=== PATIENT | female | born 1990 | race Caucasian/White ===

== ENCOUNTER 2024-12-15 06:09 | Inpatient (IN) | payer OTHER ==
[2024-12-15] MEDS ORDERED: Tranexamic Acid 1,000 MG/10 ML VIAL ONE (06:27)
[2024-12-15] MEDS ORDERED: Methylergonovine 0.2 MG/ML VIAL ONE (06:28)
[2024-12-15] MEDS ORDERED: Carboprost 250 MCG/ML AMP ONE (06:28)
[2024-12-15] MEDS: Oxytocin 30 units/NS 500 ML 500 ML ONE (06:40)
[2024-12-15] MEDS ORDERED: Lidocaine 1% (PF) 30 ML VIAL ONE (06:43)
[2024-12-15 06:44] VITALS: BMI 30.7
[2024-12-15] MEDS ORDERED: Boostrix 0.5 ML (Tdap) VIAL (>/=7 yrs of age) IM ONE (07:13)
[2024-12-15] MEDS ORDERED: Methylergonovine 0.2 MG/ML VIAL IM PRN (07:13)
[2024-12-15] MEDS ORDERED: hydrALAZINE 20 MG/ML VIAL SLOW IVP PRN (07:13)
[2024-12-15] MEDS ORDERED: Ibuprofen 200 MG TAB PO SCH (08:00)
[2024-12-15 08:25] LABS: Hematocrit 38.6 % (34.9-44.5); Hemoglobin 13.0 g/dL (12.0-15.5); Mean Corpuscular Hemoglobin 31.5 pg (27.0-33.0); Mean Corpuscular Volume 93.5 fL (81.6-98.3); Platelet Count 273 10x3/uL (150-450); Red Blood Cell (RBC) Count 4.13 10x6/uL (3.90-5.03); White Blood Cell (WBC) Count 33.93 10x3/uL (3.5-10.5)
[2024-12-15 09:03] LABS: Syphilis Antibody Index 0.07 S/CO (<1.00 Non-Reactive)
[2024-12-15 09:04] LABS: Hep B Surf Ag - L&D Non-Reactive S/CO (NonReactive)
== END 2024-12-15 11:10 | disposition home or self-care (01) | DRG 769 ==
LOC: CSHLD 06:20
PROVIDERS: ADMIT Obstetrics & Gynecology; ATTEND Obstetrics & Gynecology
PROC: 10E0XZZ Delivery of Products of Conception, External Approach (ICD-10-PCS; principal; 2024-12-15)
PROC: 0KQM0ZZ Repair Perineum Muscle, Open Approach (ICD-10-PCS; 2024-12-15)
DX: O73.0 Retained placenta without hemorrhage (principal); O70.1 Second degree perineal laceration during delivery
CPT/HCPCS: 36415; 85027; 86780; 86850; 86900; 86901; 87340; 99285; J2590